=== PATIENT | male | born 1980 | race Hispanic/Latino ===

== ENCOUNTER 2019-06-05 12:28 | Emergency (ER) | payer OTHER ==
--- OUTSIDE RECORDS SUMMARY | 2019-06-05 12:29 | XMS REPORT ---
:1980 [facility] Address [address] [place] [address] Dr. Ho [address] [place] [id number] Care Team Providers Name Role Phone Unavailable Unavailable Unavailable Problems This patient has no known problems. Allergies, Adverse Reactions, Alerts This patient has no known allergies or adverse reactions. Medications This patient has no known medications.
--- NOTE | 2019-06-05 13:08 | ER ---
Nurse's Notes [facility] Name: Darrell Green Jr Age: 38 yrs Sex: Male : 1980 Arrival Date: 06/05/2019 Time: 12:30 Bed 18 Private MD: Diagnosis: Palpitations Presentation: 06/05 12:42 Presenting complaint: Patient states: Palpitations and chest discomfort / that began ph at approx 9 pm last night, denies SOB, N/V or diaphoresis, states " It's happened before but never lasted this long. It's in the center of my chest and makes me feel like I need to cough.". Transition of care: patient was not received from another setting of care. Onset of symptoms was June 05, 2019. Risk Assessment: Do you want to hurt yourself or someone else? Patient reports no desire to harm self or others. Initial Sepsis Screen: Does the patient meet any 2 criteria? No. Patient's initial sepsis screen is negative. Does the patient have a suspected source of infection? No. Patient's initial sepsis screen is negative. Care prior to arrival: None. 12:42 Method Of Arrival: Ambulatory ph 12:42 Acuity: ELYSSA 3 ph Historical: - Allergies: 12:45 No Known Allergies; ph - Home Meds: 12:45 olmesartan oral oral [Active]; ph - PMHx: 12:45 Hypertension; ph - PSHx: 12:45 Appendectomy; ph - Immunization history:: Adult Immunizations unknown. - Social history:: Smoking status: Patient/guardian denies using tobacco, Patient/guardian denies using alcohol, street drugs, Patient/guardian denies using The patient lives with family. - Ebola Screening: : No symptoms or risks identified at this time. - Family history:: not pertinent. Screenin:50 Abuse screen: Denies threats or abuse. Nutritional screening: No deficits noted. em Tuberculosis screening: No symptoms or risk factors identified. Fall Risk None identified. Assessment: 12:50 General: Appears in no apparent distress. comfortable, Behavior is calm, cooperative, em Denies fever. Pain: Denies pain. Neuro: Level of Consciousness is awake, alert, obeys commands, Oriented to person, place, time, situation. Cardiovascular: Reports palpitations, Denies chest pain, nausea, shortness of breath, vomiting, Heart tones S1 S2 present Capillary refill < 3 seconds Patient's skin is warm and dry. Rhythm is sinus rhythm. Respiratory: Airway is patent Respiratory effort is even, unlabored, Respiratory pattern is regular, symmetrical, Breath sounds are clear bilaterally. GI: Abdomen is flat, Patient currently denies nausea, vomiting. Derm: Skin is intact, is healthy with good turgor, Skin is pink, warm \\T\\ dry. Musculoskeletal: Capillary refill < 3 seconds, Range of motion: intact in all extremities. Vital Signs: 12:44 BP 131 / 98; Pulse 68; Resp 18; Temp 98.7; Pulse Ox 98% on R/A; Weight 97.52 kg; Height ph 5 ft. 11 in. (180.34 cm); Pain 1/10; 12:44 Body Mass Index 29.99 (97.52 kg, 180.34 cm) ph ED Course: 12:30 Patient arrived in ED. mr 12:33 Luis Fernando Reid MD is Attending Physician. ma2 12:44 Triage completed. ph 12:44 Alfred Cotton LVN is Primary Nurse. em 12:45 Arm band placed on Patient placed in an exam room, on a stretcher, on photo mask cleaner, ph on pulse oximetry. 12:50 Patient has correct armband on for positive identification. Placed in gown. Bed in low em position. Call light in reach. Side rails up X2. salesperson meats on. Pulse ox on. NIBP on. 13:10 No provider procedures requiring assistance completed. Patient did not have IV access em during this emergency room visit. Administered Medications: No medications were administered Outcome: 13:08 Discharge ordered by . sae 13:10 Discharged to home ambulatory. em 13:10 Condition: good 13:10 Discharge instructions given to patient, Instructed on discharge instructions, follow up and referral plans. Demonstrated understanding of instructions, follow-up care. 13:11 Patient left the ED. em Signatures: Bettina Tillman mr Alfred Ctoton LVN LVN em Caitlyn Al, ABIMAEL RN Luis Fernando Reid MD MD ma2
--- NOTE | 2019-06-05 13:08 | EDPHYS ---
Physician Documentation [facility] Name: Darrell Green Jr Age: 38 yrs Sex: Male : 1980 Arrival Date: 06/05/2019 Time: 12:30 Bed 18 Private MD: ED Physician Luis Fernando Reid HPI: 06/05 13:06 This 38 yrs old Male presents to ER via Ambulatory with complaints of ma2 Palpitations. 13:06 The patient presents with a history of heart racing. Onset: The symptoms/episode ma2 began/occurred gradually, 2 week(s) ago. Duration: The patient or guardian reports multiple episodes. Associated signs and symptoms: Pertinent negatives: chest pain, cough, lightheadedness, SOB, syncope, vertigo. Severity of symptoms: At their worst the symptoms were very mild in the emergency department the symptoms have resolved. The patient has experienced similar episodes in the past. Historical: - Allergies: 12:45 No Known Allergies; ph - Home Meds: 12:45 olmesartan oral oral [Active]; ph - PMHx: 12:45 Hypertension; ph - PSHx: 12:45 Appendectomy; ph - Immunization history:: Adult Immunizations unknown. - Social history:: Smoking status: Patient/guardian denies using tobacco, Patient/guardian denies using alcohol, street drugs, Patient/guardian denies using The patient lives with family. - Ebola Screening: : No symptoms or risks identified at this time. - Family history:: not pertinent. ROS: 13:06 Constitutional: Negative for fever, chills, and weight loss, Cardiovascular: Negative ma2 for chest pain, palpitations, and edema, Respiratory: Negative for shortness of breath, cough, wheezing, and pleuritic chest pain, Abdomen/GI: Negative for abdominal pain, nausea, diarrhea, and constipation, Neuro: Negative for headache, weakness, numbness, tingling, and seizure, Allergy/Immunology: Negative for hives, rash, and allergies. 13:06 All other systems are negative. Exam: 13:06 Constitutional: This is a well developed, well nourished patient who is awake, alert, ma2 and in no acute distress. Head/Face: Normocephalic, atraumatic. Eyes: Pupils equal round and reactive to light, extra-ocular motions intact. Lids and lashes normal. Conjunctiva and sclera are non-icteric and not injected. Cornea within normal limits. Periorbital areas with no swelling, redness, or edema. ENT: Nares patent. No nasal discharge, no septal abnormalities noted. Tympanic membranes are normal and external auditory canals are clear. Oropharynx with no redness, swelling, or masses, exudates, or evidence of obstruction, uvula midline. Mucous membranes moist. Neck: Trachea midline, no thyromegaly or masses palpated, and no cervical lymphadenopathy. Supple, full range of motion without nuchal rigidity, or vertebral point tenderness. No Meningismus. Chest/axilla: Normal chest wall appearance and motion. Nontender with no deformity. No lesions are appreciated. Cardiovascular: Regular rate and rhythm with a normal S1 and S2. No gallops, murmurs, or rubs. Normal PMI, no JVD. No pulse deficits. Respiratory: Lungs have equal breath sounds bilaterally, clear to auscultation and percussion. No rales, rhonchi or wheezes noted. No increased work of breathing, no retractions or nasal flaring. Abdomen/GI: Soft, non-tender, with normal bowel sounds. No distension or tympany. No guarding or rebound. No evidence of tenderness throughout. MS/ Extremity: Pulses equal, no cyanosis. Neurovascular intact. Full, normal range of motion. Neuro: Awake and alert, GCS 15, oriented to person, place, time, and situation. Cranial nerves II-XII grossly intact. Motor strength 5/5 in all extremities. Sensory grossly intact. Cerebellar exam normal. Normal gait. Vital Signs: 12:44 BP 131 / 98; Pulse 68; Resp 18; Temp 98.7; Pulse Ox 98% on R/A; Weight 97.52 kg; Height ph 5 ft. 11 in. (180.34 cm); Pain 1/10; 12:44 Body Mass Index 29.99 (97.52 kg, 180.34 cm) ph MDM: 12:33 Patient medically screened. ma2 13:06 MARCY Risk Score: Not Applicable. Differential diagnosis: arrythmia, dehydration, stress ma2 disorder. Data reviewed: vital signs, nurses notes. Counseling: I had a detailed discussion with the patient and/or guardian regarding: the historical points, exam findings, and any diagnostic results supporting the discharge/admit diagnosis, the presence of at least one elevated blood pressure reading (>120/80) during this emergency department visit, the need for outpatient follow up. ED course: i offered blood work and or anxiety rx however he would like to see his pcp and will return for any new symptoms or chest pain . 06/05 12:34 Order name: EKG - Nurse/Tech; Complete Time: 12:46 ma2 Administered Medications: No medications were administered Disposition: 06/05/19 13:08 Discharged to Home. Impression: Palpitations. - Condition is Stable. - Discharge Instructions: Palpitations. - Medication Reconciliation Form, Thank You Letter, Antibiotic Education, Prescription Opioid Use form. - Follow up: Private Physician; When: Tomorrow; Reason: Continuance of care. Signatures: Alfred Cotton LVN LVN em Hall, Patricia, RN RN ph Luis Fernando Reid MD MD ma2 Corrections: (The following items were deleted from the chart) 13:11 13:08 06/05/2019 13:08 Discharged to Home. Impression: Palpitations. Condition is em Stable. Forms are Medication Reconciliation Form, Thank You Letter, Antibiotic Education, Prescription Opioid Use. Follow up: Private Physician; When: Tomorrow; Reason: Continuance of care. ma2
--- NOTE | 2019-06-06 12:53 | EKG ---
Test Date: 2019-06-05 Test Time: 12:41:54 Door Serviceman: CLARITA MEASUREMENT RESULTS: Intervals: Rate: 63 FL: 136 QRSD: 94 QT: 420 QTc: 429 [place]: P: 36 FL: 136 QRS: 11 T: 21 INTERPRETIVE STATEMENTS: Normal sinus rhythm Normal ECG Compared to ECG 03/16/1998 22:46:00 Sinus arrhythmia no longer present Left ventricular hypertrophy no longer present Electronically Signed On 06-06-19 12:49:56 CDT by Rao Miller
== END 2019-06-05 13:11 | disposition home or self-care (01) ==
LOC: ER 12:28
DX: R00.2 Palpitations (principal); I10 Essential (primary) hypertension
CPT/HCPCS: 93005; 99284

== ENCOUNTER 2019-06-07 22:08 | Emergency (ER) | payer OTHER ==
--- OUTSIDE RECORDS SUMMARY | 2019-06-07 22:10 | XMS REPORT ---
:1980 [facility] Address [address] [place] [address] Dr. Ho [address] [place] [id number] Care Team Providers Name Role Phone Unavailable Unavailable Unavailable Problems This patient has no known problems. Allergies, Adverse Reactions, Alerts This patient has no known allergies or adverse reactions. Medications This patient has no known medications.
[2019-06-07 23:30] LABS: Absolute Lymphocytes (CBC) 2.5 K/uL (0.7-4.9); Basophils % 0.4 % (0-1.3); Hematocrit 38.3 % (39.6-49.0); Lymphocytes % 31.7 % (15.3-44.8); Monocytes % 9.6 % (3.3-12.3); RBC Red Blood Cell Count 4.74 M/uL (4.33-5.43)
[2019-06-07 23:49] LABS: BUN Blood Urea Nitrogen 15 mg/dL (7-18); Bicarbonate 29 mmol/L (21-32); Glucose Level 123 mg/dL (74-106); Potassium 3.6 mmol/L (3.5-5.1); Sodium Level 143 mmol/L (136-145); Troponin (Emerg Dept Use Only) < 0.02 ng/mL (0.0-0.045)
--- NOTE | 2019-06-07 23:58 | ER ---
Nurse's Notes [facility] Name: Darrell Green Jr Age: 38 yrs Sex: Male : 1980 Arrival Date: 06/07/2019 Time: 22:11 Bed 25 Private MD: Jim Thapa E Diagnosis: Chest pain, unspecified Presentation: 06/07 22:14 Presenting complaint: Patient states: central chest pain X2 days. pt denies N/V/D, ak1 denies SOB. pt stated he has not taken his BP medication tonight. Transition of care: patient was not received from another setting of care. Onset of symptoms was June 06, 2019. Risk Assessment: Do you want to hurt yourself or someone else? Patient reports no desire to harm self or others. Initial Sepsis Screen: Does the patient meet any 2 criteria? No. Patient's initial sepsis screen is negative. Does the patient have a suspected source of infection? No. Patient's initial sepsis screen is negative. Care prior to arrival: None. 22:14 Method Of Arrival: Ambulatory ak1 22:14 Acuity: ELYSSA 3 ak1 22:17 Note pt seen on 06/05/19 for same s/s. ak1 Triage Assessment: 22:16 General: Appears in no apparent distress. Behavior is calm, cooperative. Pain: ak1 Complains of pain in mid-sternal area. EENT: No signs and/or symptoms were reported regarding the EENT system. Neuro: No deficits noted. Cardiovascular: Reports chest pain, Denies nausea, shortness of breath, vomiting. Respiratory: No deficits noted. GI: No signs and/or symptoms were reported involving the gastrointestinal system. : No signs and/or symptoms were reported regarding the genitourinary system. Derm: No signs and/or symptoms reported regarding the dermatologic system. Musculoskeletal: No signs and/or symptoms reported regarding the musculoskeletal system. Historical: - Allergies: 22:16 No Known Allergies; ak1 - Home Meds: 22:16 olmesartan 20mg Oral 1 tab once daily [Active]; Prilosec Oral [Active]; ak1 - PMHx: 22:16 Hypertension; ak1 - PSHx: 22:16 None; ak1 - Immunization history:: Adult Immunizations unknown. - Social history:: Smoking status: Patient/guardian denies using tobacco. - Ebola Screening: : No symptoms or risks identified at this time. - Family history:: not pertinent. - Hospitalizations: : No recent hospitalization is reported. Screenin:37 Abuse screen: Denies threats or abuse. Denies injuries from another. Nutritional rv screening: No deficits noted. Tuberculosis screening: No symptoms or risk factors identified. Fall Risk None identified. Assessment: 22:34 General: Appears in no apparent distress. comfortable, Behavior is calm, cooperative. rv Pain: Complains of pain in chest Pain radiates to chin Pain currently is 3 out of 10 on a pain scale. Quality of pain is described as dull, Pain began suddenly. Neuro: Level of Consciousness is awake, alert, obeys commands, Oriented to person, place, time, situation. Cardiovascular: Patient's skin is warm and dry. Rhythm is regular. Cardiovascular: Chest pain is described as mild, quality is dull is located in chest wall radiates jaw(s) began episodes are continuous. Respiratory: Airway is patent. GI: No signs and/or symptoms were reported involving the gastrointestinal system. : No signs and/or symptoms were reported regarding the genitourinary system. EENT: No signs and/or symptoms were reported regarding the EENT system. Derm: Skin is intact. Musculoskeletal: No signs and/or symptoms reported regarding the musculoskeletal system. 06/08 00:25 Reassessment: Patient appears in no apparent distress at this time. Patient and/or rv family updated on plan of care and expected duration. Pain level reassessed. Patient is alert, oriented x 3, equal unlabored respirations, skin warm/dry/pink. Vital Signs: 06/07 22:16 BP 155 / 97; Pulse 82; Resp 16; Temp 98.1; Pulse Ox 99% on R/A; Weight 97.52 kg (R); ak1 Height 5 ft. 11 in. (180.34 cm) (R); Pain 3/10; 23:00 BP 138 / 76; Pulse 81; Resp 17; Temp 98; Pulse Ox 99% on R/A; rv 06/08 00:00 BP 144 / 81; Pulse 76; Resp 17; Pulse Ox 99% on R/A; rv 06/07 22:16 Body Mass Index 29.99 (97.52 kg, 180.34 cm) ak1 ED Course: 07/09 22:11 Patient arrived in ED. do 22:11 Jim Thapa MD is Private Physician. do 22:15 Triage completed. ak1 22:16 Arm band placed on Patient placed in an exam room, on a stretcher, Patient notified of ak1 wait time. 22:34 Juanito Ortiz, ABIMAEL is Primary Nurse. rv 22:37 Patient has correct armband on for positive identification. Bed in low position. Call rv light in reach. Side rails up X 1. equipment monitor phototypesetting on. Pulse ox on. NIBP on. 22:37 Patient maintains SpO2 saturation greater than 95% on room air. rv 22:37 EKG done, by ED staff, reviewed by Herrera Brooks MD. rv 22:41 Herrera Brooks MD is Attending Physician. rn 23:08 XRAY Chest (1 view) In Process Unspecified. EDMS 23:17 Initial lab(s) drawn, by me, sent to lab. Inserted saline lock: 20 gauge in left lt1 antecubital area, using aseptic technique. 06/08 00:25 No provider procedures requiring assistance completed. IV discontinued, intact, rv bleeding controlled, No redness/swelling at site. Pressure dressing applied. Administered Medications: No medications were administered Outcome: 06/07 23:58 Discharge ordered by . rn 06/08 00:26 Discharged to home ambulatory. rv Condition: good Discharge instructions given to patient, Instructed on discharge instructions, follow up and referral plans. Demonstrated understanding of instructions, follow-up care. 00:27 Patient left the ED. rv Signatures: Dispatcher [employer] EDMS Herrera Brooks MD MD rn Krenek, Amber RN RN Christine Baker Ronaldo, ABIMAEL VARGHESE [place] [phone] Corrections: (The following items were deleted from the chart) 06/07 22:18 22:14 Presenting complaint: Patient states: central chest pain X2 days. pt denies ak1 N/V/D, denies SOB. ak1
--- NOTE | 2019-06-07 23:58 | EDPHYS ---
Physician Documentation [facility] Name: Darrell Green Jr Age: 38 yrs Sex: Male : 1980 Arrival Date: 06/07/2019 Time: 22:11 Bed 25 Private MD: Jim Thapa E ED Physician Herrera Brooks HPI: 06/07 23:04 This 38 yrs old Male presents to ER via Ambulatory with complaints of Chest rn Pain. 23:04 The patient or guardian reports chest pain that is located primarily in the substernal rn area. The pain does not radiate. Associated signs and symptoms: The patient has no apparent associated signs or symptoms, Pertinent negatives: abdominal pain, diaphoresis, near syncope, palpitations, shortness of breath, syncope, vomiting. The chest pain is described as aching. Duration: The patient or guardian reports multiple episodes, that are intermittent. Modifying factors: The symptoms are alleviated by nothing. the symptoms are aggravated by nothing. Severity of pain: At its worst the pain was moderate in the emergency department the pain has improved. The patient has experienced similar episodes in the past. Reports seen here recently for same problem, went home, felt better, returns due to chest pain, began when woke up, central pain, non-radiating, not assoc with cough/sob/vomiting/diaphoresis, no famhx of cardiac problems, no trauma. Non-smoker.. Historical: - Allergies: 22:16 No Known Allergies; ak1 - Home Meds: 22:16 olmesartan 20mg Oral 1 tab once daily [Active]; Prilosec Oral [Active]; ak1 - PMHx: 22:16 Hypertension; ak1 - PSHx: 22:16 None; ak1 - Immunization history:: Adult Immunizations unknown. - Social history:: Smoking status: Patient/guardian denies using tobacco. - Ebola Screening: : No symptoms or risks identified at this time. - Family history:: not pertinent. - Hospitalizations: : No recent hospitalization is reported. ROS: 23:04 Constitutional: Negative for fever, chills, and weight loss, Eyes: Negative for injury, rn pain, redness, and discharge, Neck: Negative for injury, pain, and swelling, Cardiovascular: Negative for palpitations, and edema, Respiratory: Negative for shortness of breath, cough, wheezing, and pleuritic chest pain, Abdomen/GI: Negative for abdominal pain, nausea, vomiting, diarrhea, and constipation, MS/Extremity: Negative for injury and deformity, Skin: Negative for injury, rash, and discoloration, Neuro: Negative for headache, weakness, numbness, tingling, and seizure. Exam: 23:04 Constitutional: This is a well developed, well nourished patient who is awake, alert, rn and in no acute distress. Head/Face: Normocephalic, atraumatic. Eyes: Pupils equal round and reactive to light, extra-ocular motions intact. Lids and lashes normal. Conjunctiva and sclera are non-icteric and not injected. Cornea within normal limits. Periorbital areas with no swelling, redness, or edema. Cardiovascular: Regular rate and rhythm. No pulse deficits. Respiratory: Lungs have equal breath sounds bilaterally, clear to auscultation. No increased work of breathing, no retractions or nasal flaring. Abdomen/GI: Soft, non-tender. No evidence of tenderness throughout. MS/ Extremity: Pulses equal, no cyanosis. Neurovascular intact. Full, normal range of motion. Equal circumference. Neuro: Awake and alert, GCS 15 Vital Signs: 22:16 BP 155 / 97; Pulse 82; Resp 16; Temp 98.1; Pulse Ox 99% on R/A; Weight 97.52 kg (R); ak1 Height 5 ft. 11 in. (180.34 cm) (R); Pain 3/10; 23:00 BP 138 / 76; Pulse 81; Resp 17; Temp 98; Pulse Ox 99% on R/A; rv 07 00:00 BP 144 / 81; Pulse 76; Resp 17; Pulse Ox 99% on R/A; rv 06/07 22:16 Body Mass Index 29.99 (97.52 kg, 180.34 cm) ak1 MDM: 06/07 22:41 Patient medically screened. rn 23:56 Differential diagnosis: acute pericarditis, anxiety, chest wall pain, costochondritis, rn esophagitis, gastritis, gastroesophageal reflux disease (GERD), pleurisy, pneumothorax. Data reviewed: vital signs, nurses notes, lab test result(s), EKG, radiologic studies, plain films, and as a result, I will discharge patient. Special discussion: I discussed with the patient/guardian in detail that at this point there is no indication for admission to the hospital. It is understood, however, that if the symptoms persist or worsen the patient needs to return immediately for re-evaluation. Based on the history and exam findings, there is no indication for further emergent testing or inpatient evaluation. I discussed with the patient/guardian the need to see the patient financial advocate for further evaluation of the symptoms. I discussed with the patient/guardian the need to see the primary care provider for further evaluation of the symptoms. 06/07 22:48 Order name: CBC with Diff; Complete Time: 23:54 rn 06/07 22:48 Order name: Basic Metabolic Panel; Complete Time: 23:54 rn 06/07 22:48 Order name: IV Start; Complete Time: 23:17 rn 06/07 22:48 Order name: EKG; Complete Time: 22:49 rn 06/07 22:48 Order name: XRAY Chest (1 view) rn 06/07 22:48 Order name: Troponin (emerg Dept Use Only); Complete Time: 23:54 rn 06/07 22:48 Order name: EKG - Nurse/Tech; Complete Time: 23:17 rn Administered Medications: No medications were administered Disposition: 06/07/19 23:58 Discharged to Home. Impression: Chest pain, unspecified. - Condition is Stable. - Discharge Instructions: Nonspecific Chest Pain. - Medication Reconciliation Form, Thank You Letter, Antibiotic Education, Prescription Opioid Use form. - Follow up: Private Physician; When: As needed; Reason: Recheck today's complaints, Re-evaluation by your physician. - Problem is new. - Symptoms have improved. Signatures: Dispatcher [employer] EDMS Herrera Brooks MD MD rn Krenek, Amber, RN RN ak1 Juaniot Ortiz RN RN rv Corrections: (The following items were deleted from the chart) 06/08 00:27 06/07 23:58 06/07/2019 23:58 Discharged to Home. Impression: Chest pain, unspecified. rv Condition is Stable. Forms are Medication Reconciliation Form, Thank You Letter, Antibiotic Education, Prescription Opioid Use. Follow up: Private Physician; When: As needed; Reason: Recheck today's complaints, Re-evaluation by your physician. Problem is new. Symptoms have improved. rn
--- NOTE | 2019-06-08 08:17 | RAD REPORT ---
EXAM DESCRIPTION: RAD - Chest Single View - 06/07/2019 11:08 pm CLINICAL HISTORY: CHEST PAIN Chest pain. COMPARISON: No comparisons FINDINGS: Portable technique limits examination quality. The lungs are grossly clear. The heart is normal in size. No displaced fractures. IMPRESSION: No acute intrathoracic process suspected.
--- NOTE | 2019-06-08 09:56 | EKG ---
Test Date: 2019-06-07 Test Time: 22:22:25 Record Cutter: MEASUREMENT RESULTS: Intervals: Rate: 75 SC: 126 QRSD: 96 QT: 396 QTc: 442 [place]: P: 39 SC: 126 QRS: 5 T: 32 INTERPRETIVE STATEMENTS: Normal sinus rhythm Normal ECG Compared to ECG 06/05/2019 12:41:54 No significant changes Electronically Signed On 06-08-19 09:55:08 CDT by Paulo Blue
== END 2019-06-08 00:27 | disposition home or self-care (01) ==
LOC: ER 22:08
DX: R07.9 Chest pain, unspecified (principal); I10 Essential (primary) hypertension
CPT/HCPCS: 36415; 71045; 80048; 84484; 85025; 93005; 99285

== ENCOUNTER 2020-04-22 23:49 | Emergency (ER) | payer OTHER ==
--- OUTSIDE RECORDS SUMMARY | 2020-04-22 23:51 | XMS REPORT ---
:1980 Author Organization [facility] t Address [address] [place] [address] Dr. Ho [address] [place] [id number] Care Team Providers Name Role Phone Unavailable Unavailable Unavailable Problems This patient has no known problems. Allergies, Adverse Reactions, Alerts This patient has no known allergies or adverse reactions. Medications This patient has no known medications. Procedures This patient has no known procedures. Results This patient has no known results.
[2020-04-23 03:11] LABS: Absolute Lymphocytes (CBC) 3.2 K/uL (0.7-4.9); Basophils % 0.2 % (0-1.3); Hematocrit 40.5 % (39.6-49.0); Lymphocytes % 33.9 % (15.3-44.8); MPV 9.1 fL (7.6-11.3); RBC Red Blood Cell Count 4.96 M/uL (4.33-5.43)
[2020-04-23 03:18] LABS: Potassium 3.7 mmol/L (3.5-5.1)
--- NOTE | 2020-04-23 03:42 | EDPHYS ---
Physician Documentation [facility] Name: Darrell Green Jr Age: 39 yrs Sex: Male : 1980 Arrival Date: 04/22/2020 Time: 23:51 Bed 2 Private MD: ED Physician William Jeffers HPI: 04/23 02:53 This 39 yrs old Male presents to ER via Ambulatory with complaints of ms3 Dizziness. 02:53 The patient presents with dizziness. Onset: The symptoms/episode began/occurred this ms3 morning. Context: occurred while the patient was standing. Modifying factors: the symptoms are aggravated by standing up. Associated signs and symptoms: The patient has no apparent associated signs or symptoms. Severity of symptoms: At their worst the symptoms were moderate in the emergency department the symptoms are unchanged Pain is currently a 0 / 10. Historical: - Allergies: 00:02 No Known Allergies; lp1 - Home Meds: 00:02 Prilosec Oral [Active]; lp1 - PMHx: 00:02 Hypertension; lp1 - PSHx: 00:02 None; lp1 - Immunization history:: Adult Immunizations up to date. - Social history:: Smoking status: Patient denies any tobacco usage or history of. - Family history:: No immediate family members are acutely ill. ROS: 02:53 Constitutional: Negative for fever, and chills. Eyes: Negative for injury, pain, ms3 redness, and discharge, ENT: Negative for injury, pain, and discharge, Neck: Negative for injury, pain, and swelling, Cardiovascular: Negative for chest pain, and palpitations. Respiratory: Negative for shortness of breath, cough, wheezing, and pleuritic chest pain, Abdomen/GI: Negative for abdominal pain, nausea, vomiting, diarrhea, and constipation, Back: Negative for injury and pain, MS/Extremity: Negative for injury and deformity, Skin: Negative for injury, rash, and discoloration. 02:53 Neuro: Positive for dizziness. Exam: 02:53 Constitutional: This is a well developed, well nourished patient who is awake, alert, ms3 and in no acute distress. Head/Face: Normocephalic, atraumatic. Eyes: Pupils equal round and reactive to light, extra-ocular motions intact. Lids and lashes normal. Conjunctiva and sclera are non-icteric and not injected. Cornea within normal limits. Periorbital areas with no swelling, redness, or edema. Chest/axilla: Normal chest wall appearance and motion. Nontender with no deformity. Cardiovascular: Regular rate and rhythm with a normal S1 and S2. No gallops, murmurs, or rubs. Normal PMI, no JVD. No pulse deficits. Respiratory: Lungs have equal breath sounds bilaterally, clear to auscultation and percussion. No rales, rhonchi or wheezes noted. No increased work of breathing, no retractions or nasal flaring. Abdomen/GI: Soft, non-tender, with normal bowel sounds. No distension or tympany. No guarding or rebound. No evidence of tenderness throughout. Back: No spinal tenderness. No costovertebral tenderness. Full range of motion. Skin: Warm, dry with normal turgor. Normal color with no rashes, no lesions, and no evidence of cellulitis. MS/ Extremity: Pulses equal, no cyanosis. Neurovascular intact. Full, normal range of motion. Neuro: Awake and alert, GCS 15, oriented to person, place, time, and situation. Cranial nerves II-XII grossly intact. Motor strength 5/5 in all extremities. Sensory grossly intact. Cerebellar exam normal. Normal gait. 02:53 ECG was reviewed by the Attending Physician. ms3 Vital Signs: 00:02 BP 135 / 107; Pulse 69; Resp 18; Temp 98.1(O); Pulse Ox 98% on R/A; Weight 99.79 kg lp1 (R); Height 5 ft. 11 in. (180.34 cm); Pain 0/10; 02:06 BP 143 / 92 Supine; Pulse 66; jd3 02:06 BP 147 / 99 Sitting; Pulse 67; jd3 02:06 BP 137 / 97 Standing; Pulse 70; jd3 04:02 BP 131 / 99; Pulse 69; Resp 17 S; Pulse Ox 100% on R/A; jd3 00:02 Body Mass Index 30.68 (99.79 kg, 180.34 cm) lp1 MDM: 02:03 Patient medically screened. ms3 02:53 Differential diagnosis: hypovolemia, idiopathic dizziness, vertigo. ms3 04:02 Data reviewed: vital signs, nurses notes, lab test result(s), EKG. ms3 04:02 Data interpreted: Pulse oximetry:. Test interpretation: by ED physician or midlevel ms3 provider: ECG. Counseling: I had a detailed discussion with the patient and/or guardian regarding: the historical points, exam findings, and any diagnostic results supporting the discharge/admit diagnosis, lab results, the need for outpatient follow up, to return to the emergency department if symptoms worsen or persist or if there are any questions or concerns that arise at home. ED course: Discussed lab sand EKG with pt. Pt to follow up with his PMD within 2 days. All questions answered. Return precautions discussed to include chest pain, lightheadedness, or any other concerns. Pt understands/ agrees with plan. Pt improved, nad, non-toxic, ambulatory in ED.. 04/23 02:10 Order name: CBC with Diff; Complete Time: 03:36 ms3 04/23 02:10 Order name: Basic Metabolic Panel; Complete Time: 03:36 ms3 04/23 01:48 Order name: EKG; Complete Time: 01:49 lp1 04/23 01:48 Order name: EKG - Nurse/Tech; Complete Time: 01:48 lp1 EC:53 Rate is 63 beats/min. Rhythm is regular. QRS [place] is Normal. [place] interval is normal. QRS ms3 interval is normal. QT interval is normal. Clinical impression: Normal ECG. Interpreted by me. Administered Medications: No medications were administered Disposition: 04/23/20 03:41 Discharged to Home. Impression: Dizziness. - Condition is Stable. - Medication Reconciliation Form, Thank You Letter, Antibiotic Education, Prescription Opioid Use form. - Follow up: Private Physician; When: 1 - 2 days. - Problem is new. - Symptoms have improved. Signatures: Dispatcher [employer] EDMS Claudia Keating RN RN lp1 Bandar Ceron RN RN jd3 William Jeffers DO DO ms3 Corrections: (The following items were deleted from the chart) 04:02 03:41 04/23/2020 03:41 Discharged to Home. Impression: Dizziness. Condition is Stable. jd3 Forms are Medication Reconciliation Form, Thank You Letter, Antibiotic Education, Prescription Opioid Use. Follow up: Private Physician; When: 1 - 2 days. Problem is new. Symptoms have improved. ms3
--- NOTE | 2020-04-23 03:42 | ER ---
Nurse's Notes [facility] Name: Darrell Green Jr Age: 39 yrs Sex: Male : 1980 Arrival Date: 04/22/2020 Time: 23:51 Bed 2 Private MD: Diagnosis: Dizziness Presentation: 04/23 00:00 Chief complaint: Patient states: Dizziness that began about 1600 today, laying on lp1 cough, got up and became dizzy; "It tends to happen when I get up from laying down"; States symptoms began for the first time today. Coronavirus screen: Proceed with normal triage. Ebola Screen: No symptoms or risks identified at this time. Risk Assessment: Do you want to hurt yourself or someone else? Patient reports no desire to harm self or others. Onset of symptoms was April 23, 2020. 00:00 Method Of Arrival: Ambulatory lp1 00:00 Acuity: ELYSSA 3 lp1 00:02 Initial Sepsis Screen: Does the patient meet any 2 criteria? No. Patient's initial lp1 sepsis screen is negative. Does the patient have a suspected source of infection? No. Patient's initial sepsis screen is negative. Historical: - Allergies: 00:02 No Known Allergies; lp1 - Home Meds: 00:02 Prilosec Oral [Active]; lp1 - PMHx: 00:02 Hypertension; lp1 - PSHx: 00:02 None; lp1 - Immunization history:: Adult Immunizations up to date. - Social history:: Smoking status: Patient denies any tobacco usage or history of. - Family history:: No immediate family members are acutely ill. Screenin:05 Abuse screen: Denies threats or abuse. Denies injuries from another. Nutritional lp1 screening: No deficits noted. Tuberculosis screening: No symptoms or risk factors identified. 02:08 Fall Risk None identified. jd3 Assessment: 02:07 General: Appears in no apparent distress. uncomfortable, Behavior is calm, cooperative, jd3 appropriate for age. Pain: Denies pain. Neuro: Level of Consciousness is awake, alert, obeys commands, Oriented to person, place, time, situation, Pupils are PERRLA, Reports dizziness, Denies weakness blurred vision headache. Cardiovascular: Denies chest pain, Capillary refill < 3 seconds Patient's skin is warm and dry. Respiratory: Airway is patent Respiratory effort is even, unlabored, Respiratory pattern is regular, symmetrical, Denies cough, shortness of breath. GI: No signs and/or symptoms were reported involving the gastrointestinal system. : No signs and/or symptoms were reported regarding the genitourinary system. EENT: No signs and/or symptoms were reported regarding the EENT system. Derm: Skin is intact, Skin is dry, Skin is normal, Skin temperature is warm. Musculoskeletal: Circulation, motion, and sensation intact. Range of motion: intact in all extremities. 03:41 Reassessment: Patient appears in no apparent distress at this time. Patient and/or jd3 family updated on plan of care and expected duration. Pain level reassessed. Patient is alert, oriented x 3, equal unlabored respirations, skin warm/dry/pink. Patient states feeling better. 04:01 Reassessment: Patient appears in no apparent distress at this time. Patient and/or jd3 family updated on plan of care and expected duration. Pain level reassessed. Patient is alert, oriented x 3, equal unlabored respirations, skin warm/dry/pink. reported understanding of discharge instructions. even and steady gait upon discharge. Vital Signs: 00:02 BP 135 / 107; Pulse 69; Resp 18; Temp 98.1(O); Pulse Ox 98% on R/A; Weight 99.79 kg lp1 (R); Height 5 ft. 11 in. (180.34 cm); Pain 0/10; 02:06 BP 143 / 92 Supine; Pulse 66; jd3 02:06 BP 147 / 99 Sitting; Pulse 67; jd3 02:06 BP 137 / 97 Standing; Pulse 70; jd3 04:02 BP 131 / 99; Pulse 69; Resp 17 S; Pulse Ox 100% on R/A; jd3 00:02 Body Mass Index 30.68 (99.79 kg, 180.34 cm) lp1 ED Course: 04/22 23:51 Patient arrived in ED. cl3 04/23 00:01 Triage completed. lp1 00:02 Arm band placed on right wrist. lp1 01:48 William Jeffers DO is Attending Physician. ms3 02:04 Bandar Ceron RN is Primary Nurse. jd3 02:08 Patient has correct armband on for positive identification. Placed in gown. Bed in low jd3 position. Call light in reach. Side rails up X 1. monitor car operator on. Pulse ox on. NIBP on. 04:02 No provider procedures requiring assistance completed. IV discontinued, intact, jd3 bleeding controlled, No redness/swelling at site. Pressure dressing applied. Administered Medications: No medications were administered Outcome: 03:41 Discharge ordered by MD. ms3 04:02 Discharged to home ambulatory, with family. jd3 04:02 Condition: stable 04:02 Discharge instructions given to patient, Instructed on discharge instructions, follow up and referral plans. Demonstrated understanding of instructions, follow-up care. 04:02 Patient left the ED. jd3 Signatures: Claudia Keating RN RN lp1 Bandar Ceron RN RN jd3 Adama Khan cl3 William Jeffers DO DO ms3
[2020-04-23 04:45] VITALS: TEMP 98.1
[2020-04-23 04:48] VITALS: BP 131/99; O2SAT 100
--- NOTE | 2020-04-23 08:52 | EKG ---
Test Date: 2020-04-23 Test Time: 01:45:06 Pathology Laboratory Director: HENOK MEASUREMENT RESULTS: Intervals: Rate: 63 PA: 130 QRSD: 96 QT: 426 QTc: 435 [place]: P: 27 PA: 130 QRS: -3 T: 9 INTERPRETIVE STATEMENTS: Normal sinus rhythm with sinus arrhythmia Normal ECG Compared to ECG 06/07/2019 22:22:25 No significant changes Electronically Signed On 04-23-20 08:52:08 CDT by Rao Miller
== END 2020-04-23 04:02 | disposition home or self-care (01) ==
LOC: ER 23:49
DX: R42 Dizziness and giddiness (principal); I10 Essential (primary) hypertension
CPT/HCPCS: 36415; 80048; 85025; 93005; 99284

== ENCOUNTER 2022-01-31 14:00 | Emergency (ER) | payer OTHER, SELFPAY ==
--- OUTSIDE RECORDS SUMMARY | 2022-01-31 14:03 | XMS REPORT | Continuity of Care Document ---
:1980 Author Organization [facility] t Address [address] [place] [address] [address] [place] [address] Care Team Providers Name Role Phone MADDISON YODER Primary Care Physician Unavailable Ashtyn DUDLEY Attending Clinician Unavailable Rupal BIGGS S Attending Clinician Eliazar OLVERA Attending Clinician Unavailable Eliazar Olvera APN Attending Clinician Doctor Unassigned, Name Attending Clinician Unavailable EFRA Admitting Clinician Unavailable Payers Payer Name Policy Type Policy Number Effective Date Expiration Date S ource HIM AMBETTER FROM [id number] [address] [facility] 00:00:00 Advance Directives Directive Decision Effective Termination Comments Source Date Date Healthcare Agents on N/A [facility] FileNameRelationKn[facility] Agent Medical RelationshipCommunicationInga Branch ReyesSpouseHealth Care [phone] (Mobile) Problems Condition Condition Condition Status Onset Resolution Last Treating Co mments Source Name Details Category Date Date Treatment Clinician Date Surgical Surgical Disease Active 2015-11 Unive rs follow-up follow-up 2-22 ity of care care 00:00: [place] [address] Medical Branch Appendicit Appendicit Disease Active 2016-1 U nivers is is 2-20 ity of 00:00: [address] Branch Allergies, Adverse Reactions, Alerts Allergy Allergy Status Severity Reaction(s) Onset Inactive Treating Comm ents Source Name Type Date Date Clinician NO KNOWN Drug Active Univers ALLERGIE Class ity of S [facility] Social History Social Habit Start Date Stop Date Quantity Comments Source Exposure to Not sure [facility] SARS-CoV-2 [place] [facility] (event) Branch History SDOH University o f Alcohol Frequency [place] [facility] History SDOH University o f Alcohol Std [place] [facility] Drinks Branch History SDOH University o f Alcohol Binge [place] [facility] Alcohol intake 2021-10-17 2021-10-17 Current drinker Unive rsity of 00:00:00 00:00:00 of alcohol [place] [facility] (finding) Branch Alcohol Comment 2016-11-18 2016-11-18 rare Universit y of 00:00:00 00:00:00 [facility] Tobacco use and 2016-11-18 2016-11-18 Never used Universit y of exposure 00:00:00 00:00:00 [facility] Sex Ass[birth year] At [birth year] Universit y of 00:00:00 00:00:00 [facility] Smoking Status Start Date Stop Date Source Never smoker [place] [facility] Medications Ordered Filled Start Stop Current Ordering Indication Dosage Frequency Signature Comments Components Source Medication Medication Date Date Medication? Clinician (SIG) Name Name LORazepam 2020-11- No 2mg 2 mg, Slow U nivers (ATIVAN) 12-17 IV Push, ity of injection 2 12:15: 11:23 ONCE, [place] mg 00 :00 dose, On Medical [place] Branch 10/17/21 at 0615, STAT ranitidine Yes [id number] 150mg Take 1 Univers (ZANTAC) 4-25 tablet by ity of 150 mg 00:00: mouth 2 [place] tablet 00 (two) Medical times Branch daily. Follow up with your MD for further evaluation and treatment. ranitidine Yes [id number] 150mg Take 1 Univers (ZANTAC) 4-25 tablet by ity of 150 mg 00:00: mouth 2 [place] tablet 00 (two) Medical times Branch daily. Follow up with your MD for further evaluation and treatment. ranitidine Yes [id number] 150mg Take 1 Univers (ZANTAC) 4-25 tablet by ity of 150 mg 00:00: mouth 2 [place] tablet 00 (two) Medical times Branch daily. Follow up with your MD for further evaluation and treatment. traMADOL 50 2019-0 Yes [id number] 50mg Take 1 Univers mg tablet 4-19 tablet by ity o f 00:00: mouth [place] 00 every 6 Medical (six) Branch hours as needed for Pain (scale 4-6). ibuprofen 2019-0 Yes [id number] 800mg Take 1 U nivers 800 mg 4-19 tablet by ity of tablet 00:00: mouth [place] 00 every 8 Medical (eight) Branch hours. traMADOL 50 2018-0 Yes [id number] 50mg Take 1 Univers mg tablet 4-19 tablet by ity o f 00:00: mouth [place] 00 every 6 Medical (six) Branch hours as needed for Pain (scale 4-6). ibuprofen 2019-0 Yes [id number] 800mg Take 1 U nivers 800 mg 4-19 tablet by ity of tablet 00:00: mouth [place] 00 every 8 Medical (eight) Branch hours. traMADOL 50 2018-0 Yes [id number] 50mg Take 1 Univers mg tablet 4-19 tablet by ity o f 00:00: mouth [place] 00 every 6 Medical (six) Branch hours as needed for Pain (scale 4-6). ibuprofen 2019-0 Yes [id number] 800mg Take 1 U nivers 800 mg 4-19 tablet by ity of tablet 00:00: mouth [place] 00 every 8 Medical (eight) Branch hours. lisinopril 2018-0 Yes 10mg Take 10 mg U nivers (PRINIVIL,Z 9-17 by mouth ity of ESTRIL) 10 04:48: daily. [place] mg tablet 45 Medical Branch lisinopril 2018-0 Yes 10mg Take 10 mg U nivers (PRINIVIL,Z 9-17 by mouth ity of ESTRIL) 10 04:48: daily. [place] mg tablet 45 Medical Branch lisinopril 2018-0 Yes 10mg Take 10 mg U nivers (PRINIVIL,Z 9-17 by mouth ity of ESTRIL) 10 04:48: daily. [place] mg tablet 45 Medical Branch neomycin-po 2018-0 Yes 3[drp] Place 3 U nivers lymyxin-hyd 9-17 Drops in ity of rocortisone 00:00: left ear 4 [place] 3.5-10,000- 00 (four) Medica l 1 times Branch mg/mL-unit/ daily. mL-% otic susp acetaminoph 2018-0 Yes 1{tbl} Take 1 Un darrius en-codeine 9-17 tablet by ity of 300-30 mg 00:00: mouth [place] tablet 00 every 4 Medical (four) Branch hours as needed for Pain (scale 4-6) (Cough). amoxicillin 2018-0 Yes 500mg Take 1 Uni vers 500 mg 9-17 capsule by ity of capsule 00:00: mouth 3 [place] 00 (three) Medical times Branch daily. neomycin-po 2018-0 Yes 3[drp] Place 3 U nivers lymyxin-hyd 9-17 Drops in ity of rocortisone 00:00: left ear 4 [place] 3.5-10,000- 00 (four) Medica l 1 times Branch mg/mL-unit/ daily. mL-% otic susp acetaminoph 2018-0 Yes 1{tbl} Take 1 Un darrius en-codeine 9-17 tablet by ity of 300-30 mg 00:00: mouth [place] tablet 00 every 4 Medical (four) Branch hours as needed for Pain (scale 4-6) (Cough). amoxicillin 2018-0 Yes 500mg Take 1 Uni vers 500 mg 9-17 capsule by ity of capsule 00:00: mouth 3 [place] 00 (three) Medical times Branch daily. neomycin-po 2018-0 Yes 3[drp] Place 3 U nivers lymyxin-hyd 9-17 Drops in ity of rocortisone 00:00: left ear 4 [place] 3.5-10,000- 00 (four) Medica l 1 times Branch mg/mL-unit/ daily. mL-% otic susp acetaminoph 2018-0 Yes 1{tbl} Take 1 Un darrius en-codeine 9-17 tablet by ity of 300-30 mg 00:00: mouth [place] tablet 00 every 4 Medical (four) Branch hours as needed for Pain (scale 4-6) (Cough). amoxicillin 2018-0 Yes 500mg Take 1 Uni vers 500 mg 9-17 capsule by ity of capsule 00:00: mouth 3 [place] 00 (three) Medical times Branch daily. Vital Signs Vital Name Observation Time Observation Value Comments Source Heart rate 2021-10-17 11:56:00 97 /min [facility] [place] [facility] Respiratory rate 2021-10-17 11:56:00 17 /min Univ ersity of [facility] Oxygen saturation in 2021-10-17 11:56:00 98 /min University of Arterial blood by [facility] [place] [facility] Pulse oximetry Branch Systolic blood 2021-10-17 11:56:00 159 mm[Hg] Univer sity of pressure [facility] Diastolic blood 2021-10-17 11:56:00 109 mm[Hg] Unive rsity of pressure [place] [facility] [place] Body temperature 2021-10-17 10:40:00 37.11 Kayy Univ ersity of [place] [facility] [place] Body height 2021-10-17 10:40:00 180.3 cm [facility] ty [facility] [place] [facility] [place] Body weight 2021-10-17 10:40:[address] [facility] BMI 2021-10-17 10:40:00 30.68 kg/m2 [facility] ty [facility] [place] [facility] [place] Systolic blood 2021-10-05 19:00:00 150 mm[Hg] Univer sity of pressure [place] [facility] Diastolic blood 2021-10-05 19:00:00 102 mm[Hg] Unive rsity of pressure [place] [facility] Heart rate 2021-10-05 19:00:00 80 /min Universi ty of [facility] Respiratory rate 2021-10-05 19:00:00 17 /min Univ ersity of [facility] Oxygen saturation in 2021-10-05 19:00:00 96 /min University of Arterial blood by [facility] [place] [facility] Pulse oximetry Branch Body temperature 2021-10-05 18:20:00 37.22 Kayy Univ ersity [facility] [place] [facility] [place] Body height 2021-10-05 18:20:00 180.3 cm [facility] [place] [facility] Body weight 2021-10-05 18:20:00 95.255 kg [facility] [place] [facility] [place] BMI 2021-10-05 18:20:00 29.29 kg/m2 [facility] [place] [facility] [place] Procedures Procedure Date / Time Performing Clinician Source Performed EKG-12 LEAD 2021-10-17 11:43:55 Araceli Dudley [facility] LIPASE 2021-10-17 10:53:00 Araceli Dudley [facility] TROPONIN I 2021-10-17 10:53:00 Araceli Dudley [facility] COMP. METABOLIC PANEL 2021-10-17 10:53:00 Araceli Dudley [facility] ([id number]) Medical Branch CBC WITH DIFF 2021-10-17 10:53:00 Araceli Dudley [facility] PROTHROMBIN TIME / INR 2021-10-17 10:53:00 Araceli Dudley [facility] ACTIVATED PARTIAL 2021-10-17 10:53:00 Araceli Dudley [facility] XR CHEST 1 VW 2021-10-05 18:41:54 Efra Don [facility] LIPASE 2021-10-05 18:27:00 Efra Don [facility] TROPONIN I 2021-10-05 18:27:00 Efra Don [facility] COMP. METABOLIC PANEL 2021-10-05 18:27:00 Don Kraus [facility] ([id number]) Medical [place] CBC WITH DIFF 2021-10-05 18:27:00 Efra Don [facility] PROTHROMBIN TIME / INR 2021-10-05 18:27:00 Don Kraus [facility] ACTIVATED PARTIAL 2021-10-05 [facility] 2021-10-05 18:27:00 Don Kraus [facility] TESTING) Medical [place] NOTICE OF PRIVACY 2021-10-05 18:17:05 Doctor Unassigned, No Univ [facility] PRACTICES Name Medical Branch CONSENT/REFUSAL FOR 2021-10-05 18:16:50 [facility], [facility] Medical [place] Encounters Start End Encounter Admission Attending Care Care Encounter Source Date/Time Date/Time Type Type Clinicians Facility Department ID 2021-10-17 2021-10-17 Emergency X LOY DUDLEY ERT [id number] Univers 04:47:00 06:19:00 [facility] 2021-10-17 2021-10-17 Emergency Rupal [facility] [id number] Univers 04:47:00 06:19:00 Araceli DURON [id number] ity of [place] 4.2.7.2.686 [facility] [id number] [address] 2021-10-05 2021-10-05 [facility] [id number] Univers 13:23:00 14:54:00 MARINA itjimy [facility] 2021-10-05 2021-10-05 [facility] [id number] Univers 13:23:00 14:54:00 Marina Eliazar DURON [id number] ity of [place] [id number] [facility] [phone] [address] 2021-10-05 2021-10-05 Orders Doctor DASHA [id number] Univers 00:00:00 00:00:00 Only Unassigned, JAYA [id number] ity of [place] [facility] [id number] [facility] [phone] [address] Results Test Description Test Time Test Comments Results Result Comments Source TROPONIN I 2021-10-17 11:26:03 Test Item Value Reference Range Interpretation Comme nts TROPONIN I (test code = 0.003 ng/mL See_Comment [Au tomated message] The 8061999365) system which ge nerated this result tra nsmitted reference range : <=0.034. The reference r jerilyn was not used to int erpret this result as normal/abnormal . BILL (test code = BILL) Reference (Normal) Range (defined by the 99th percentile reference limit): <= 0.034 ng/mL Note: Cardiac troponin begins to rise 3-4 hours after the onset of ischemia. Repeat in 4-6 hours if the sample was drawn within 3-4 hours of the onset of the symptom and found normal. Diagnosis of myocardial injury is made with acute changes in cTn concentrations with at least one serial sample above the 99th percentile upper reference limit (URL), taken together with the patient's clinical presentation. Biotin has been reported to cause a negative bias, interpret results relative to patient's use of biotin. Lab Interpretation Normal (test code = 96902-9) [facility] [place] [facility]. METABOLIC PANEL ([id number])2021-10-17 11:14:21 Test Item Value Reference Range Interpretation Comments NA (test code = 138 mmol/L 135-145 0606683706) K (test code = 3.7 mmol/L 3.5-5.0 2849984943) CL (test code = 102 mmol/L 98-108 5083221546) CO2 TOTAL (test code = 24 mmol/L 23-31 1033343530) AGAP (test code = 2-16 7171087785) BUN (test code = 15 mg/dL 7-23 7609356571) GLUCOSE (test code = 136 mg/dL 70-110 H 7129147522) CREATININE (test code = 0.99 mg/dL 0.60-1.25 7600450147) TOTAL BILI (test code = 0.5 mg/dL 0.1-1.8 0106109376) CALCIUM (test code = 9.3 mg/dL 8.6-10.6 8114601601) T PROTEIN (test code = 8.1 g/dL 6.3-8.2 7107140052) ALBUMIN (test code = 4.6 g/dL 3.5-5.0 4159804229) ALK PHOS (test code = 53 U/L 34-122 9444949661) ALTv (test code = 27 U/L 5-50 1742-6) AST(SGOT) (test code = 29 U/L 13-40 7808479194) eGFR (test code = mL/min/1.73m2 7825906976) BILL (test code = BILL) Association of Glomerular Filtration Rate (GFR) and Staging of Kidney Disease* + --+ --+ ------+| GFR (mL/min/1.73 m2) ?| With Kidney Damage ?| ?Without Kidney Damage+ --------+ --------+ +| ?>90 ?| ?Stage one ?| ? Normal ?+ ---+ ---+ -------+| ?60-89 ?| ?Stage two ?| ? Decreased GFR ? + --+ --+ ------+| ?30-59 ?| ?Stage three ?| ? Stage three ? + --+ --+ ------+| ?15-29 ?| ?Stage four ? | ? Stage four ?+ ---+ ---+ -------+| ?<15 (or dialysis) ? ?| ?Stage five ? | ? Stage five ?+ ---+ ---+ -------+ *Each stage assumes the associated GFR level has been in effect for at least three months. ?Stages 1 to 5, with or without kidney disease, indicate chronic kidney disease. Notes: Determination of stages one and two (with eGFR >59mL/min/1.73 m2) requires estimation of kidney damage for at least three months as defined by structural or functional abnormalities of the kidney, manifested by either:Pathological abnormalities or Markers of kidney damage (including abnormalities in the composition of the blood or urine or abnormalities in imaging tests). Lab Interpretation Abnormal (test code = 84734-1) [facility]:14[facility]01 Test Item Value Reference Range Interpretation Comments APTT Patient (test See_Comment [Automat ed code = 3173-2) message] The system which generated this result transmitted reference range : 23 - 38 Seconds . The reference range was not used to interpr et this result as normal/abnormal . BILL (test code = BILL) The [facility] patient population mean normal value for aPTT is 30 seconds. Lab Interpretation Normal (test code = 22659-1) [facility] [id number] 11:14:01 Test Item Value Reference Range Interpretation Comments LIPASE (test code = 5493857876) 55 U/L 0-220 Lab Interpretation (test code = Normal 58695-5) [facility] / [id number] 11:11:59 Test Item Value Reference Range Interpretation Comments PROTIME PATIENT (test See_Comment [Auto mated message] code = 5964-2) The system wh ich generated this result transmitted ref erence range: 12.0 - 1 4.7 Seconds. The re ference range was not u sed to interpret this result as normal/abnor mal. INR (test code = 6301-6) Nor mal INR <1.1; Warfarin Therap eutic range 2.0 to 3. 0 or 2.5 to 3.5, dep ending upon the indica tions. Lab Interpretation (test Normal code = 57354-4) [facility] WITH [id number] 11:03:38 Test Item Value Reference Range Interpretation Comments WBC (test code = See_Comment [Automated 6690-2) message] The sy stem which generated this result transmitted reference range : 4.20 - 10.70 10*3/?L. The reference range was not used to interpret this result as normal/abnormal . RBC (test code = See_Comment H [Automated 789-8) message] The sy stem which generated this result transmitted reference range : 4.26 - 5.52 10*6/?L. The reference range was not used to interpret this result as normal/abnormal . HGB (test code = 15.6 g/dL 12.2-16.4 718-7) HCT (test code = 46.8 % 38.4-49.3 4544-3) MCV (test code = 81.0 fL 81.7-95.6 L 787-2) MCH (test code = 27.0 pg 26.1-32.7 785-6) MCHC (test code = 33.3 g/dL 31.2-35.0 786-4) RDW-SD (test code = 39.2 fL 38.5-51.6 70522-4) RDW-CV (test code = 13.5 % 12.1-15.4 788-0) PLT (test code = See_Comment [Automated 777-3) message] The sy stem which generated this result transmitted reference range : 150 - 328 10*3/ ?L. The reference r jerilyn was not used to interpret this result as normal/abnormal . MPV (test code = 10.1 fL 9.8-13.0 60475-8) NRBC/100 WBC (test See_Comment [Automat ed code = 3737798129) message] The system which generated this result transmitted reference range : 0.0 - 10.0 /100 WBCs. The refer ence range was not u sed to interpret th is result as normal/abnormal . NRBC x10^3 (test code <0.01 See_Comment [Auto mated = 1475204951) message] The s ystem which generated this result transmitted reference range : 10*3/?L. The reference range was not used to interpret this result as normal/abnormal . GRAN MAT (NEUT) % 54.4 % (test code = 770-8) IMM GRAN % (test code 0.70 % = 2521944167) LYMPH % (test code = 34.7 % 736-9) MONO % (test code = 8.0 % 5905-5) EOS % (test code = 1.9 % 713-8) BASO % (test code = 0.3 % 706-2) GRAN MAT x10^3(ANC) 5.79 10*3/uL 1.99-6.95 (test code = 1991340361) IMM GRAN x10^3 (test 0.07 10*3/uL 0.00-0.06 H code = 8689752760) LYMPH x10^3 (test code 3.69 10*3/uL 1.09-3.23 H = 731-0) MONO x10^3 (test code 0.85 10*3/uL 0.36-1.02 = 742-7) EOS x10^3 (test code = 0.20 10*3/uL 0.06-0.53 711-2) BASO x10^3 (test code 0.03 10*3/uL 0.01-0.09 = 704-7) Lab Interpretation Abnormal (test code = 22872-4) [facility] [id number] 19:32:34 Test Item Value Reference Interpretation Comments Range TROPONIN I (test 0.003 ng/mL See_Comment [Automated code = 1772202180) message] The system which generated this result transmitted reference range : <=0.034. The reference range was not used to interpret this result as normal/abnormal . BILL (test code = Reference (Normal) BILL) Range (defined by the 99th percentile reference limit): <= 0.034 ng/mL Note: Cardiac troponin begins to rise 3-4 hours after the onset of ischemia. Repeat in 4-6 hours if the sample was drawn within 3-4 hours of the onset of the symptom and found normal. Diagnosis of myocardial injury is made with acute changes in cTn concentrations with at least one serial sample above the 99th percentile upper reference limit (URL), taken together with the patient's clinical presentation. Biotin has been reported to cause a negative bias, interpret results relative to patient's use of biotin. Lab Interpretation Normal (test code = 89728-0) [facility]. METABOLIC PANEL ([id number])2021-10-05 19:20:52 Test Item Value Reference Range Interpretation Comments NA (test code = 138 mmol/L 135-145 6359892703) K (test code = 4.4 mmol/L 3.5-5.0 4173640863) CL (test code = 100 mmol/L 98-108 8931946133) CO2 TOTAL (test code 29 mmol/L 23-31 = 2524629625) AGAP (test code = 2-16 9020329015) BUN (test code = 12 mg/dL 7-23 4622503856) GLUCOSE (test code = 101 mg/dL 70-110 5123681819) CREATININE (test code 0.96 mg/dL 0.60-1.25 = 7539121866) TOTAL BILI (test code 0.5 mg/dL 0.1-1.1 = 1424553361) CALCIUM (test code = 9.5 mg/dL 8.6-10.6 8385565654) T PROTEIN (test code 8.0 g/dL 6.3-8.2 = 2035559857) ALBUMIN (test code = 4.5 g/dL 3.5-5.0 5216547869) ALK PHOS (test code = 50 U/L 34-122 6232731177) ALTv (test code = 29 U/L 5-50 2-6) AST(SGOT) (test code 29 U/L 13-40 = 1212460799) eGFR (test code = mL/min/1.73m2 3776515269) BILL (test code = BILL) Association of Glomerular Filtration Rate (GFR) and Staging of Kidney Disease* + + +- +| GFR (mL/min/1.73 m2) ?| With Kidney Damage ?| ?Without Kidney Damage+ ------+ ----+ ------+| ?>90 ?| ?Stage one ?| ? Normal ?+ -+ + -+| ?60-89 ?| ?Stage two ?| ? Decreased GFR ? + + +- +| ?30-59 ?| ?Stage three ?| ? Stage three ? + + +- +| ?15-29 ?| ?Stage four ? | ? Stage four ?+ -+ + -+| ?<15 (or dialysis) ? ?| ?Stage five ? | ? Stage five ?+ -+ + -+ *Each stage assumes the associated GFR level has been in effect for at least three months. ?Stages 1 to 5, with or without kidney disease, indicate chronic kidney disease. Notes: Determination of stages one and two (with eGFR >59mL/min/1.73 m2) requires estimation of kidney damage for at least three months as defined by structural or functional abnormalities of the kidney, manifested by either:Pathological abnormalities or Markers of kidney damage (including abnormalities in the composition of the blood or urine or abnormalities in imaging tests). [facility] [id number] 19:20:52 Test Item Value Reference Range Interpretation Comments LIPASE (test code = 3387294032) 45 U/L 0-220 Lab Interpretation (test code = Normal 02645-3) [facility] 19:09:54 Test Item Value Reference Range Interpretation Comments APTT Patient (test See_Comment [Automat ed code = 3173-2) message] The system which generated this result transmitted reference range : 23 - 38 Seconds . The reference range was not used to interpr et this result as normal/abnormal . BILL (test code = BILL) The [facility] patient population mean normal value for aPTT is 30 seconds. Lab Interpretation Normal (test code = 65905-3) [facility] / [id number] 19:07:52 Test Item Value Reference Range Interpretation Comments PROTIME PATIENT (test See_Comment [Auto mated message] code = 5964-2) The system wh ich generated this result transmitted ref erence range: 12.0 - 1 4.7 Seconds. The re ference range was not u sed to interpret this result as normal/abnor mal. INR (test code = 6301-6) Nor mal INR <1.1; Warfarin Therap eutic range 2.0 to 3. 0 or 2.5 to 3.5, dep ending upon the indica tions. Lab Interpretation (test Normal code = 32003-5) [facility] WITH [id number] 18:38:31 Test Item Value Reference Range Interpretation Comments WBC (test code = See_Comment [Automated 6690-2) message] The sy stem which generated this result transmitted reference range : 4.20 - 10.70 10*3/?L. The reference range was not used to interpret this result as normal/abnormal . RBC (test code = See_Comment H [Automated 789-8) message] The sy stem which generated this result transmitted reference range : 4.26 - 5.52 10*6/?L. The reference range was not used to interpret this result as normal/abnormal . HGB (test code = 15.2 g/dL 12.2-16.4 718-7) HCT (test code = 46.2 % 38.4-49.3 4544-3) MCV (test code = 82.2 fL 81.7-95.6 787-2) MCH (test code = 27.0 pg 26.1-32.7 785-6) MCHC (test code = 32.9 g/dL 31.2-35.0 786-4) RDW-SD (test code = 39.9 fL 38.5-51.6 57552-4) RDW-CV (test code = 13.5 % 12.1-15.4 788-0) PLT (test code = See_Comment [Automated 777-3) message] The sy stem which generated this result transmitted reference range : 150 - 328 10*3/ ?L. The reference r jerilyn was not used to interpret this result as normal/abnormal . MPV (test code = 9.7 fL 9.8-13.0 L 77141-9) NRBC/100 WBC (test See_Comment [Automat ed code = 2989679228) message] The system which generated this result transmitted reference range : 0.0 - 10.0 /100 WBCs. The refer ence range was not u sed to interpret th is result as normal/abnormal . NRBC x10^3 (test code <0.01 See_Comment [Auto mated = 6481799176) message] The s rankdesktem which generated this result transmitted reference range : 10*3/?L. The reference range was not used to interpret this result as normal/abnormal . GRAN MAT (NEUT) % 59.0 % (test code = 770-8) IMM GRAN % (test code 0.60 % = 2308612915) LYMPH % (test code = 29.8 % 736-9) MONO % (test code = 9.0 % 5905-5) EOS % (test code = 1.3 % 713-8) BASO % (test code = 0.3 % 706-2) GRAN MAT x10^3(ANC) 5.16 10*3/uL 1.99-6.95 (test code = 2880901050) IMM GRAN x10^3 (test 0.05 10*3/uL 0.00-0.06 code = [id number]) LYMPH x10^3 (test code 2.61 10*3/uL 1.09-3.23 = 731-0) MONO x10^3 (test code 0.79 10*3/uL 0.36-1.02 = 742-7) EOS x10^3 (test code = 0.11 10*3/uL 0.06-0.53 711-2) BASO x10^3 (test code 0.03 10*3/uL 0.01-0.09 = 704-7) Lab Interpretation Abnormal (test code = 48329-9) [facility]"
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
--- NOTE | 2022-01-31 15:21 | RAD REPORT ---
EXAM DESCRIPTION: RAD - Knee Right 3 View - 01/31/2022 3:08 pm CLINICAL HISTORY: Right knee pain status post injury FINDINGS: No fracture or dislocation is seen.
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
[2022-01-31 15:35] VITALS: BP 150/107; TEMP 97.9; O2SAT 98
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
== END 2022-01-31 15:30 | disposition left against medical advice (07) ==
LOC: ER 14:00
DX: R51.9 Headache, unspecified (principal); S80.211A Abrasion, right knee, initial encounter; I10 Essential (primary) hypertension
CPT/HCPCS: 70450; 72125; 99282